=== PATIENT | male | born 1985 | race Caucasian/White ===

== ENCOUNTER 2019-10-15 03:12 | Observation (INO) | payer BC ==
[~2019-10-15] VITALS: Ht 170.2 cm; Wt 145.2 kg
[2019-10-15] MEDS ORDERED: ASPIRIN CHEWABLE 81 MG TABLET. PO ONE (04:00)
[2019-10-15 04:02] LABS: BASO # 0.1 x10^3/uL (0.0-0.2); BASO % 2 % (0-3); EOS # 0.1 x10^3/uL (0.0-0.7); EOS % 1 % (0-3); HEMATOCRIT 46.7 % (39.0-53.0); HEMOGLOBIN 15.9 g/dL (13.0-17.5); LYMPH # 3.1 x10^3/uL (1.0-4.8); LYMPH % 31 % (24-48); MEAN CORPUSCULAR HEMOGLOBIN 30 pg (25-35); MEAN CORPUSCULAR HGB CONC 34 g/dL (31-37); MEAN CORPUSCULAR VOLUME 87 fL (79-100); MONO # 0.6 x10^3/uL (0.0-1.1); MONO % 6 % (0-9); NEUT % 60 % (31-73); PLATELET COUNT 262 x10^3/uL (140-400); RED BLOOD COUNT 5.38 x10^6/uL (4.30-5.70); RED CELL DISTRIBUTION WIDTH 13.7 % (11.5-14.5)
--- NOTE | 2019-10-15 04:07 | RAD ---
EXAM: AP View of the chest DATE: 10/15/2019 3:32 AM INDICATION: Chest pain COMPARISON: No Prior FINDINGS: The heart is not enlarged. Mediastinal and hilar contours are normal. No focal parenchymal airspace opacity. No pleural effusion or pneumothorax. Mild eventration right hemidiaphragm. IMPRESSION: No radiographic evidence for acute cardiopulmonary process Electronically signed by: Salbador Zamora MD (10/15/2019 4:04 AM) DANIELA
--- NOTE | 2019-10-15 04:29 | PHYS DOC ---
Past Medical History Past Medical History: Hypertension Additional Past Medical Histor: OBESITY Past Surgical History: No Surgical History Smoking Status: Current Every Day Smoker Alcohol Use: Occasionally General Adult EDM: Chief Complaint: CHEST PAIN HPI: HPI: Patient is a 34 year old male with h/o HTN and tobacoism who present with left sided chest pain radiating to his left shoulder, neck and jaw. 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 No SOA, cough, leg pain or swelling. Father has h/o SD in early thirties. No fever, chills, sweats, cough. [] Review of Systems: Review of Systems: ROS as per HPI Heart Score: Risk Factors: Risk Factors: DM, Current or recent (<one month) smoker, HTN, HLP, family his tory of CAD, obesity. Risk Scores: Score 0 - 3: 2.5% MACE over next 6 weeks - Discharge Home Score 4 - 6: 20.3% MACE over next 6 weeks - Admit for Clinical Observation Score 7 - 10: 72.7% MACE over next 6 weeks - Early Invasive Strategies Current Medications: Current Medications Medications (Trade) Dose Ordered Sig/Moises Start Time Stop Time Status Last Admin Dose Admin Aspirin (Aspirin Chewable) 324 mg 1X ONCE 10/15/19 04:00 10/15/19 04:01 DC 10/15/19 04:04 324 MG Lorazepam (Ativan Inj) 1 mg 1X ONCE 10/15/19 04:00 10/15/19 04:01 DC 10/15/19 04:04 1 MG Allergies: Allergies: Allergies Coded Allergies Type Severity Reaction Last Updated Verified Unable to Assess 10/15/19 No Physical Exam: PE: Constitutional: Well developed, well nourished, no acute distress, non-toxic appearance. [] HENT: Normocephalic, atraumatic, bilateral external ears normal, oropharynx moist, no oral exudates, nose normal. [] Eyes: PERRLA, EOMI, conjunctiva normal, no discharge. [] Neck: Normal range of motion, no tenderness, supple, no stridor. [] Cardiovascular:Heart rate regular rhythm, no murmur [] Lungs & Thorax: Bilateral breath sounds clear to auscultation [] Abdomen: Bowel sounds normal, soft, no tenderness, no masses, no pulsatile masses. [] Skin: Warm, dry, no erythema, no rash. [] Back: No tenderness, no CVA tenderness. [] Extremities: No tenderness, no cyanosis, no clubbing, ROM intact, no edema. [] Neurologic: Alert and oriented X 3, normal motor function, normal sensory function, no focal deficits noted. [] Psychologic: Affect normal, judgement normal, mood normal. [] Current Patient Data: Labs: Laboratory Tests Test 10/15/19 03:55 10/15/19 03:59 White Blood Count 10.0 x10^3/uL (4.0-11.0) Red Blood Count 5.38 x10^6/uL (4.30-5.70) Hemoglobin 15.9 g/dL (13.0-17.5) Hematocrit 46.7 % (39.0-53.0) Mean Corpuscular Volume 87 fL (79-100) Mean Corpuscular Hemoglobin 30 pg (25-35) Mean Corpuscular Hemoglobin Concent 34 g/dL (31-37) Red Cell Distribution Width 13.7 % (11.5-14.5) Platelet Count 262 x10^3/uL (140-400) Neutrophils (%) (Auto) 60 % (31-73) Lymphocytes (%) (Auto) 31 % (24-48) Monocytes (%) (Auto) 6 % (0-9) Eosinophils (%) (Auto) 1 % (0-3) Basophils (%) (Auto) 2 % (0-3) Neutrophils # (Auto) 6.0 x10^3/uL (1.8-7.7) Lymphocytes # (Auto) 3.1 x10^3/uL (1.0-4.8) Monocytes # (Auto) 0.6 x10^3/uL (0.0-1.1) Eosinophils # (Auto) 0.1 x10^3/uL (0.0-0.7) Basophils # (Auto) 0.1 x10^3/uL (0.0-0.2) POC Troponin I 0.00 ng/ml (<0.08) Laboratory Tests 10/15/19 03:55 Vital Signs: Vital Signs Date Time Temp Pulse Resp B/P (MAP) Pulse Ox O2 Delivery O2 Flow Rate FiO2 10/15/19 03:14 97.9 118 18 155/89 (111) 100 Room Air 97.9 EKG: EKG: EKG: no acute ST changes. ] Radiology/Procedures: Radiology/Procedures: [CXR: NAD] Course & Med Decision Making: Course & Med Decision Making Pertinent Labs and Imaging studies reviewed. (See chart for details) [Atypical CP, EKG, and tropical non-diagnostic. Symptoms improved with Ativan and ASA. Multiple cardiac risk factors including paternal SD in his early thirties. Will admit to the hospitalists service for further evaluation an tx. ] Manasa Disclaimer: Manasa Disclaimer: This electronic medical record was generated, in whole or in part, using a voice recognition dictation system. Departure Departure Impression: Primary Impression: Chest pain Disposition: HOME, SELF-CARE Condition: STABLE Referrals: CHAPIN SHAVER (PCP) HANH WARREN DO Oct 15, 2019 04:29
[2019-10-15 04:50] LABS: CALCIUM 9.7 mg/dL (8.5-10.1); GFR 86.1; POTASSIUM 3.8 mmol/L (3.5-5.1)
[2019-10-15 04:56] LABS: ALBUMIN 3.6 g/dL (3.4-5.0); ALBUMIN/GLOBULIN RATIO 1.2 (1.0-1.7); TOTAL BILIRUBIN 0.3 mg/dL (0.2-1.0); TOTAL PROTEIN 6.5 g/dL (6.4-8.2)
[2019-10-15 05:39] VITALS: BP 141/84
--- NOTE | 2019-10-15 05:55 | NUR ---
PT ARRIVED TO ROOM 208 PER CART PT AMBULATED TO BED. PT ORIENTED TO SURROUNDINGS AND CALL LIGHT POC EXPLAINED PT. ASSESSMENT COMPLETED VSS PT RATED PAIN 3/10 STATED THE PAIN IS BETTER NOW.WILL RESUME CARE AND CONTINUE TO MONITOR PT.
[2019-10-15] MEDS ORDERED: LISI10TA2 PO (06:18)
[2019-10-15 07:00] VITALS: BP 159/101
--- NOTE | 2019-10-15 07:19 | EKG ---
[facility] [address] [place] [address] Test Date: 2019-10-15 Test Time: 03:18:49 Pat Name: RONN SHAVER Department: Room: 208 1 Gender: M Precision Assembler: : [id number] Requested By: HANH WARREN Order Number: [id number] Reading MD: Cassius Moulton Measurements Intervals [place] Rate: 97 P: 13 SD: 154 QRS: -3 QRSD: 104 T: 56 QT: 342 QTc: 438 Interpretive Statements SINUS RHYTHM LEFTWARD AXIS INCOMPLETE RIGHT BUNDLE BRANCH BLOCK Electronically Signed On 10-16-2019 10:17:03 CDT by Cassius Moulton
[2019-10-15 11:00] VITALS: BP 136/86
--- NOTE | 2019-10-15 11:09 | PDOC1 ---
History and Physical Date of Admission Date of Admission DATE: 10/15/19 TIME: 11:08 Identification/Chief Complaint Chief Complaint SEEN IN ER WITH ANGINA 34 year old male with h/o HTN and tobacco abuse who present with left sided chest pain radiating to his left shoulder, neck and jaw. 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 No SOA, cough, leg pain or swelling. HIS Father has h/o [place] in early thirties. Past Medical History Past Medical History Past Medical History Past Medical History Past Medical History: Hypertension Additional Past Medical Histor: OBESITY Past Surgical History: No Surgical History Smoking Status: Current Every Day Smoker Alcohol Use: Occasionally FHX OBESITY Cardiovascular: HTN Pulmonary: No pertinent hx GI: No pertinent hx Family History Family History: Coronary Artery Disease, High Cholestrol, Hypertension Social History Smoke: <1 pack per day ALCOHOL: none Drugs: None Current Problem List Problem List Problems Medical Problems: (1) Chest pain Status: Acute Current Medications Current Medications Current Medications Aspirin (Aspirin Chewable) 324 mg 1X ONCE PO Last administered on 10/15/19at 04:04; Start 10/15/19 at 04:00; Stop 10/15/19 at 04:01; Status DC Lorazepam (Ativan Inj) 1 mg 1X ONCE IVP Last administered on 10/15/19at 04:04; Start 10/15/19 at 04:00; Stop 10/15/19 at 04:01; Status DC Active Scripts Active Reported Lisinopril 10 Mg Tablet 1 Tab PO DAILY Allergies Allergies: Coded Allergies: No Known Allergies (Verified Allergy, Unknown, 10/15/19) ROS Review of System 14 pt ros neg except as in this document General: No: Chills, Night Sweats, Fatigue, Malaise, Appetite, Other PSYCHOLOGICAL ROS: No: Anxiety, Behavioral Disorder, Concentration difficultie, Decreased libido, Depression, Disorientation, Hallucinations, Hostility, Irritablity, Memory difficulties, Mood Swings, Obsessive thoughts, Physical abuse, Sexual abuse, Sleep disturbances, Suicidal ideation, Other Eyes: No Blurry vision, No Decreased vision, No Double vision, No Dry eyes, No Excessive tearing, No Eye Pain, No Itchy Eyes, No Loss of vision, No Photophobia, No Scotomata, No Uses contacts, No Uses glasses, No Other HEENT: No: Heacaches, Visual Changes, Hearing change, Nasal congestion, Nasal discharge, Oral lesions, Sinus pain, Sore Throat, Epistaxis, Sneezing, Snoring, Tinnitus, Vertigo, Vocal changes, Other ALLERGY AND IMMUNOLOGY: No: Hives, Insect Bite Sensitivity, Itchy/Watery Eyes, Nasal Congestion, Post Nasal Drip, Seasonal Allergies, Other Hematological and Lymphatic: No: Bleeding Problems, Blood Clots, Blood Transfusions, Brusing, Night Sweats, Pallor, Swollen Lymph Nodes, Other ENDOCRINE: No: Breast Changes, Galactorrhea, Hair Pattern Changes, Hot Flashes, Malaise/lethargy, Mood Swings, Palpitations, Polydipsia/polyuria, Skin Changes, Temperature Intolerance, Unexpected Weight Changes, Other Respiratory: No: Cough, Hemoptysis, Orthopnea, Pleuritic Pain, Shortness of breath, SOB with excertion, Sputum Changes, Stridor, Tachypnea, Wheezing, Other Cardiovascular: yes Chest Pain; No Palpitations, No Orthopnea, No Paroxysmal Noc. Dyspnea, No Edema, No Lt Headedness, No Other Gastrointestinal: No Nausea, No Vomiting, No Abdominal Pain, No Diarrhea, No Constipation, No Melena, No Hematochezia, No Other Genitourinary: No Dysuria, No Frequency, No Incontinence, No Hematuria, No Retention, No Discharge, No Urgency, No Pain, No Flank Pain, No Other, No , No , No , No , No , No , No Musculoskeletal: No Gait Disturbance, No Joint Pain, No Joint Stiffness, No Joint Swelling, No Muscle Pain, No Muscular Weakness, No Pain In:, No Swelling In:, No Other Neurological: No Behavorial Changes, No Bowel/Bladder ControlChng, No Confusion, No Dizziness, No Gait Disturbance, No Headaches, No Impaired Coord/balance, No Memory Loss, No Numbness/Tingling, No Seizures, No Speech Problems, No Tremors, No Visual Changes, No Weakness, No Other Skin: No Dry Skin, No Eczema, No Hair Changes, No Lumps, No Mole Changes, No Mottling, No Nail Changes, No Pruritus, No Rash, No Skin Lesion Changes, No Other, No Acne Physical Exam Physical Exam Physical Exam: PE: Constitutional: Well developed, well nourished, no acute distress, non-toxic appearance. [] HENT: Normocephalic, atraumatic, bilateral external ears normal, oropharynx moist, no oral exudates, nose normal. [] Eyes: PERRLA, EOMI, conjunctiva normal, no discharge. [] Neck: Normal range of motion, no tenderness, supple, no stridor. [] Cardiovascular:Heart rate regular rhythm, no murmur [] Lungs & Thorax: Bilateral breath sounds clear to auscultation [] Abdomen: Bowel sounds normal, soft, no tenderness, no masses, no pulsatile masses. [] Skin: Warm, dry, no erythema, no rash. [] Back: No tenderness, no CVA tenderness. [] Extremities: No tenderness, no cyanosis, no clubbing, ROM intact, no edema. [] Neurologic: Alert and oriented X 3, normal motor function, normal sensory function, no focal deficits noted. [] Psychologic: Affect normal, judgment normal, mood normal. [] General: Alert, Oriented X3, Cooperative, No acute distress HEENT: Atraumatic, EOMI, Mucous membr. moist/pink Lungs: Clear to auscultation, Normal air movement Heart: RRR, no thrills, no murmurs Breasts: Not examined Abdomen: Normal bowel sounds, Soft, No tenderness Rectal Exam: not examined PELVIC: Examination not indicated Extremities: No cyanosis Neuro: Normal speech, Cranial nerves 3-12 NL Psych/Mental Status: Mental status NL, Mood NL Vitals Vitals Vital Signs Date Time Temp Pulse Resp B/P (MAP) Pulse Ox O2 Delivery O2 Flow Rate FiO2 10/15/19 08:00 Room Air 10/15/19 07:00 98.3 80 18 159/101 (120) 98 98.3 Labs Labs Laboratory Tests Test 10/15/19 03:55 10/15/19 03:59 10/15/19 04:36 10/15/19 09:05 White Blood Count 10.0 x10^3/uL (4.0-11.0) Red Blood Count 5.38 x10^6/uL (4.30-5.70) Hemoglobin 15.9 g/dL (13.0-17.5) Hematocrit 46.7 % (39.0-53.0) Mean Corpuscular Volume 87 fL (79-100) Mean Corpuscular Hemoglobin 30 pg (25-35) Mean Corpuscular Hemoglobin Concent 34 g/dL (31-37) Red Cell Distribution Width 13.7 % (11.5-14.5) Platelet Count 262 x10^3/uL (140-400) Neutrophils (%) (Auto) 60 % (31-73) Lymphocytes (%) (Auto) 31 % (24-48) Monocytes (%) (Auto) 6 % (0-9) Eosinophils (%) (Auto) 1 % (0-3) Basophils (%) (Auto) 2 % (0-3) Neutrophils # (Auto) 6.0 x10^3/uL (1.8-7.7) Lymphocytes # (Auto) 3.1 x10^3/uL (1.0-4.8) Monocytes # (Auto) 0.6 x10^3/uL (0.0-1.1) Eosinophils # (Auto) 0.1 x10^3/uL (0.0-0.7) Basophils # (Auto) 0.1 x10^3/uL (0.0-0.2) Bedside Troponin I 0.00 ng/ml (<0.08) Sodium Level 142 mmol/L (136-145) Potassium Level 3.8 mmol/L (3.5-5.1) Chloride Level 105 mmol/L (98-107) Carbon Dioxide Level 24 mmol/L (21-32) Anion Gap 13 (6-14) Blood Urea Nitrogen 15 mg/dL (8-26) Creatinine 1.0 mg/dL (0.7-1.3) Estimated GFR (Cockcroft-Gault) 86.1 BUN/Creatinine Ratio 15 (6-20) Glucose Level 100 mg/dL (70-99) Calcium Level 9.7 mg/dL (8.5-10.1) Total Bilirubin 0.3 mg/dL (0.2-1.0) Aspartate Amino Transf (AST/SGOT) 11 U/L (15-37) Alanine Aminotransferase (ALT/SGPT) 25 U/L (16-63) Alkaline Phosphatase 92 U/L (46-116) Total Protein 6.5 g/dL (6.4-8.2) Albumin 3.6 g/dL (3.4-5.0) Albumin/Globulin Ratio 1.2 (1.0-1.7) Troponin I Quantitative < 0.017 ng/mL (0.000-0.055) Laboratory Tests Test 10/15/19 03:55 10/15/19 03:59 10/15/19 04:36 10/15/19 09:05 White Blood Count 10.0 x10^3/uL (4.0-11.0) Red Blood Count 5.38 x10^6/uL (4.30-5.70) Hemoglobin 15.9 g/dL (13.0-17.5) Hematocrit 46.7 % (39.0-53.0) Mean Corpuscular Volume 87 fL (79-100) Mean Corpuscular Hemoglobin 30 pg (25-35) Mean Corpuscular Hemoglobin Concent 34 g/dL (31-37) Red Cell Distribution Width 13.7 % (11.5-14.5) Platelet Count 262 x10^3/uL (140-400) Neutrophils (%) (Auto) 60 % (31-73) Lymphocytes (%) (Auto) 31 % (24-48) Monocytes (%) (Auto) 6 % (0-9) Eosinophils (%) (Auto) 1 % (0-3) Basophils (%) (Auto) 2 % (0-3) Neutrophils # (Auto) 6.0 x10^3/uL (1.8-7.7) Lymphocytes # (Auto) 3.1 x10^3/uL (1.0-4.8) Monocytes # (Auto) 0.6 x10^3/uL (0.0-1.1) Eosinophils # (Auto) 0.1 x10^3/uL (0.0-0.7) Basophils # (Auto) 0.1 x10^3/uL (0.0-0.2) Bedside Troponin I 0.00 ng/ml (<0.08) Sodium Level 142 mmol/L (136-145) Potassium Level 3.8 mmol/L (3.5-5.1) Chloride Level 105 mmol/L (98-107) Carbon Dioxide Level 24 mmol/L (21-32) Anion Gap 13 (6-14) Blood Urea Nitrogen 15 mg/dL (8-26) Creatinine 1.0 mg/dL (0.7-1.3) Estimated GFR (Cockcroft-Gault) 86.1 BUN/Creatinine Ratio 15 (6-20) Glucose Level 100 mg/dL (70-99) Calcium Level 9.7 mg/dL (8.5-10.1) Total Bilirubin 0.3 mg/dL (0.2-1.0) Aspartate Amino Transf (AST/SGOT) 11 U/L (15-37) Alanine Aminotransferase (ALT/SGPT) 25 U/L (16-63) Alkaline Phosphatase 92 U/L (46-116) Total Protein 6.5 g/dL (6.4-8.2) Albumin 3.6 g/dL (3.4-5.0) Albumin/Globulin Ratio 1.2 (1.0-1.7) Troponin I Quantitative < 0.017 ng/mL (0.000-0.055) Images Images EXAM: AP View of the chest DATE: 10/15/2019 3:32 AM INDICATION: Chest pain COMPARISON: No Prior FINDINGS: The heart is not enlarged. Mediastinal and hilar contours are normal. No focal parenchymal airspace opacity. No pleural effusion or pneumothorax. Mild eventration right hemidiaphragm. IMPRESSION: No radiographic evidence for acute cardiopulmonary process Electronically signed by: Salbador Zamora MD (10/15/2019 4:04 AM) [facility] DICTATED and SIGNED BY: SALBADOR ZAMORA MD DATE: 10/15/19 0404 VTE Prophylaxis Ordered VTE Prophylaxis Devices: No VTE Pharmacological Prophylaxi: Yes Assessment/Plan Assessment/Plan Impression: Chest pain morbid obesity tobacco abuse disorder hypertension pos FHX PREMATURE CAD plan admit cvc bed cardiology consult serial troponin i dvt prophylaxis ECHO D/W CARDIOLOGY IN [place] JULIO RIOS MD Oct 15, 2019 11:09
[2019-10-15] MEDS ORDERED: IV NORMAL SALINE 1000ML BAG 1,000 ML IV SCH (11:41)
[2019-10-15] MEDS ORDERED: ACETAMINOPHEN 325 MG TABLET. PO PRN (11:45)
[2019-10-15] MEDS ORDERED: MAG HYDROX/ALUMINUM HYD/SIMETH 30 ML ORAL.SUSP PO PRN (11:45)
[2019-10-15] MEDS ORDERED: ALBUTEROL SULFATE 2.5 MG/3 ML NEBU. NEB PRN (11:45)
[2019-10-15] MEDS ORDERED: guaiFENesin ORAL 200 MG/10 ML LIQUID. PO PRN (11:45)
[2019-10-15] MEDS ORDERED: cloNIDine HCL 0.1 MG TABLET PO PRN (11:45)
[2019-10-15] MEDS ORDERED: ONDANSETRON PF 4 MG/2 ML VIAL. IV PRN (11:45)
[2019-10-15] MEDS ORDERED: 0.9 % SODIUM CHLORIDE 10 ML DISP.SYRIN. IV PRN (11:45)
[2019-10-15] MEDS ORDERED: DOCUSATE SODIUM 100 MG CAPSULE. PO PRN (11:45)
--- NOTE | 2019-10-15 11:47 | NUR ---
SS following for discharge planning. SS reviewed pt chart and discussed with pt RN. Pt is from home with spouse and is currently on room air. No discharge needs identified at this time. Pt will discharge to home when medically stable. SS will continue to follow for discharge planning.
[2019-10-15] MEDS ORDERED: LISINOPRIL 10 MG TABLET PO SCH (12:00)
--- NOTE | 2019-10-15 12:27 | PDOC2 ---
MYRA HEMPHILL PREFORMING MACHINE OPERATOR 10/15/19 1227: CARDIAC CONSULT DATE OF CONSULT Date of Consult DATE: 10/15/19 TIME: 12:24 REASON FOR CONSULT Reason for Consult: Chest pain REFERRING PHYSICIAN Referring Physician: Dr. Gomez SOURCE Source: Chart review, Patient HISTORY OF PRESENT ILLNESS HISTORY OF PRESENT ILLNESS This is a 34 yo male who presented secondary to chest pain. Patient reports he was laying in bed last night and developed stabbing pain in his left chest. Radiated up to the left jaw. Did not radiated to his arms. Began to feel slightly short of breath and possibly dizzy, although he thinks this occurred as he was getting workup up due to this left chest pain. Pain persisted for a couple of hours so he decided to come to the ED for further evaluation and treatment. Pain resolved with Ativan and ASA in ED. Pain has largely been resolved overnight. Is feeling well this am. Has a history of hypertension, but does not take his lisinopril regularly. No recent chest pain with exertion or GOEL. No previous cardiac workup. No recent fevers/illness. PAST MEDICAL HISTORY Cardiovascular: HTN GI: GERD Psych: Depression PAST SURGICAL HISTORY Past Surgical History: Other (vasectomy ) FAMILY HISTORY Family History: Chronic Bronchitis (mother ), Coronary Artery Disease (father stents in his 40's ) SOCIAL HISTORY Smoke: <1 pack per day ALCOHOL: none Drugs: None Lives: with Family CURRENT MEDICATIONS CURRENT MEDICATIONS Current Medications Medications (Trade) Dose Ordered Sig/Moises Route PRN Reason Start Time Stop Time Status Last Admin Dose Admin Aspirin (Aspirin Chewable) 324 mg 1X ONCE PO 10/15/19 04:00 10/15/19 04:01 DC 10/15/19 04:04 Lorazepam (Ativan Inj) 1 mg 1X ONCE IVP 10/15/19 04:00 10/15/19 04:01 DC 10/15/19 04:04 ALLERGIES ALLERGIES: Coded Allergies: No Known Allergies (Verified Allergy, Unknown, 10/15/19) ROS Review of System 14 point ROS conducted with pertinent positives noted above in HPI PHYSICAL EXAM General: Alert, Oriented X3, Cooperative, No acute distress HEENT: Atraumatic, Mucous membr. moist/pink Lungs: Clear to auscultation, Normal air movement Heart: Regular rate, No murmurs Abdomen: No tenderness Extremities: No edema, Normal pulses Skin: No breakdown, No significant lesion Neuro: Normal speech, Sensation intact Psych/Mental Status: Mental status NL, Mood NL MUSCULOSKELETAL: No joint tenderness VITALS/I&O VITALS/I&O: Vital Signs Date Time Temp Pulse Resp B/P (MAP) Pulse Ox O2 Delivery O2 Flow Rate FiO2 10/15/19 11:00 97.9 98 16 136/86 (103) 97 Room Air 97.9 I & O 10/14/19 10/14/19 10/15/19 15:00 23:00 07:00 Intake Total 0 ml Balance 0 ml LABS Lab: Laboratory Tests Test 10/15/19 03:55 10/15/19 03:59 10/15/19 04:36 10/15/19 09:05 White Blood Count 10.0 x10^3/uL (4.0-11.0) Red Blood Count 5.38 x10^6/uL (4.30-5.70) Hemoglobin 15.9 g/dL (13.0-17.5) Hematocrit 46.7 % (39.0-53.0) Mean Corpuscular Volume 87 fL (79-100) Mean Corpuscular Hemoglobin 30 pg (25-35) Mean Corpuscular Hemoglobin Concent 34 g/dL (31-37) Red Cell Distribution Width 13.7 % (11.5-14.5) Platelet Count 262 x10^3/uL (140-400) Neutrophils (%) (Auto) 60 % (31-73) Lymphocytes (%) (Auto) 31 % (24-48) Monocytes (%) (Auto) 6 % (0-9) Eosinophils (%) (Auto) 1 % (0-3) Basophils (%) (Auto) 2 % (0-3) Neutrophils # (Auto) 6.0 x10^3/uL (1.8-7.7) Lymphocytes # (Auto) 3.1 x10^3/uL (1.0-4.8) Monocytes # (Auto) 0.6 x10^3/uL (0.0-1.1) Eosinophils # (Auto) 0.1 x10^3/uL (0.0-0.7) Basophils # (Auto) 0.1 x10^3/uL (0.0-0.2) POC Troponin I 0.00 ng/ml (<0.08) Sodium Level 142 mmol/L (136-145) Potassium Level 3.8 mmol/L (3.5-5.1) Chloride Level 105 mmol/L (98-107) Carbon Dioxide Level 24 mmol/L (21-32) Anion Gap 13 (6-14) Blood Urea Nitrogen 15 mg/dL (8-26) Creatinine 1.0 mg/dL (0.7-1.3) Estimated GFR (Cockcroft-Gault) 86.1 BUN/Creatinine Ratio 15 (6-20) Glucose Level 100 mg/dL (70-99) H Calcium Level 9.7 mg/dL (8.5-10.1) Total Bilirubin 0.3 mg/dL (0.2-1.0) Aspartate Amino Transferase (AST) 11 U/L (15-37) L Alanine Aminotransferase (ALT) 25 U/L (16-63) Alkaline Phosphatase 92 U/L (46-116) Total Protein 6.5 g/dL (6.4-8.2) Albumin 3.6 g/dL (3.4-5.0) Albumin/Globulin Ratio 1.2 (1.0-1.7) Troponin I Quantitative < 0.017 ng/mL (0.000-0.055) Laboratory Tests 10/15/19 03:55 Laboratory Tests 10/15/19 04:36 ASSESSMENT/PLAN ASSESSMENT/PLAN 1. Chest pain, atypical. Initial trop negative. EKG without acute changes 2. Hypertension; noncompliant with medical therapy. 3. GERD 4. Family h/o premature CAD 5. Obestiy 6. Tobaccoism Recommendations Trend trop Lipids TSH Echo to assess LV systolic function Resume lisinoprol; encouraged compliance with medical therapy Discussed/encouraged lifestyle modification including weight loss and smoking cessation If echo WNL, may discharge from a CV standpoint Will arrange outpatient treadmill stress test and followup. MAXIMILIAN FELDER MD 10/15/19 1521: CARDIAC CONSULT ASSESSMENT/PLAN ASSESSMENT/PLAN Patient seen and examined Chest pain. Atypical. No acute EKG changes. Will trend troponin. Will check an echo. If no elevation in troponin and no significant LV dysfunction echo the patient could be discharged from a cardiac viewpoint. We will arrange outpatient stress testing and follow-up. Hypertension. Resuming baseline medications. Discussed medical compliance with the patient and its importance. Tobacco abuse. Discussed cessation. Obesity and family history of early coronary disease. Discussed risk factor mo dification. Thank you for allowing us to participate in the care of your patient. MYRA HEMPHILL APRN Oct 15, 2019 12:27 MAXIMILIAN FELDER MD Oct 15, 2019 15:21
[2019-10-15] MEDS ORDERED: PANTOPRAZOLE 40 MG TABLET.DR. PO SCH (12:30)
[2019-10-15 13:11] LABS: CHOLESTEROL/HDL RATIO 5.5
--- NOTE | 2019-10-15 13:42 | CARD ---
MR#: [id number] Date of Study: 10/15/2019 Ordering Physician: MYRA HEMPHILL, Referring Physician: MYRA HEMPHILL, Tech: Judith Dugan SONIA APPROVED REPORT EXAM: Two-dimensional and M-mode echocardiogram with Doppler and color Doppler. Other Information Quality : Fair Rhythm : NSR INDICATION Chest Pain Morbid Obesity 2D DIMENSIONS RVDd2.5 (2.9-3.5cm)Left Atrium(2D)3.4 (1.6-4.0cm) IVSd1.0 (0.7-1.1cm)Aortic Root(2D)3.0 (2.0-3.7cm) LVDd5.6 (3.9-5.9cm)LVOT Diameter2.2 (1.8-2.4cm) PWd1.0 (0.7-1.1cm)LVDs3.7 (2.5-4.0cm) FS (%) 34.3 %SV97.8 ml LVEF(%)60.0 (>50%) Aortic Valve AoV Peak Issac.100.9cm/sAoV VTI18.2cm AO Peak GR.4.1mmHgLVOT Peak Issac.103.7cm/s AO Mean GR.2mmHgAVA (VMAX)3.79cm2 ASH (VTI)4.30cm2 Mitral Valve MV E Arxdxqoz88.2cm/sMV DECEL [id number] MV A Lsuvvlni69.9cm/sE/A Ratio1.8 Pulmonary Vein S1 Bgokqrqo62.4cm/sD2 Mjnpzlaw19.8cm/s LEFT VENTRICLE The left ventricle is normal size. There is normal left ventricular wall thickness. The left ventricu lar systolic function is normal and the ejection fraction is within normal range. The Ejection Fracti on is 55-60%. The left ventricular diastolic function and filling is normal for age. RIGHT VENTRICLE The right ventricle is normal size. The right ventricular systolic function is normal. ATRIA The left atrium size is normal. The right atrium size is normal. The interatrial septum is intact wit h no evidence for an atrial septal defect or patent foramen ovale as noted on 2-D or Doppler imaging. AORTIC VALVE The aortic valve is normal in structure and function. Doppler and Color Flow revealed no significant aortic regurgitation. There is no significant aortic valvular stenosis. MITRAL VALVE The mitral valve is normal in structure and function. There is no evidence of mitral valve prolapse. There is no mitral valve stenosis. Doppler and Color Flow revealed no mitral valve regurgitation note d. TRICUSPID VALVE The tricuspid valve is normal in structure and function. Doppler and Color Flow revealed no tricuspid valve regurgitation noted. There is no tricuspid valve stenosis. PULMONIC VALVE The pulmonic valve is not well visualized. Doppler and Color Flow revealed no pulmonic valvular regur gitation. There is no pulmonic valvular stenosis. GREAT VESSELS The aortic root is normal in size. The ascending aorta is normal in size. The IVC is normal in size a nd collapses >50% with inspiration. PERICARDIAL EFFUSION There is no evidence of significant pericardial effusion. Critical Notification Critical Value: No <Conclusion> The left ventricle is normal size. The left ventricular systolic function is normal and the ejection fraction is within normal range. The Ejection Fraction is 55-60%. Doppler and Color Flow revealed no significant aortic regurgitation. There is no significant aortic valvular stenosis. Doppler and Color Flow revealed no mitral valve regurgitation noted. Doppler and Color Flow revealed no tricuspid valve regurgitation noted. Signed by : Cassius Moulton MD Electronically Approved : 10/15/2019 13:41:43
[2019-10-15] MEDS ORDERED: HEPARIN for SUB-Q USE 5,000 UNIT/ML VIAL. SQ SCH (14:00)
--- NOTE | 2019-10-15 14:28 | PDOC3 ---
Discharge Summary Date of Admission: Oct 15, 2019 Date of Discharge: Oct 15, 2019 Follow-Up: 3-5 days Admitting Diagnosis comment: DISCHARGE DX Assessment/Plan Impression: Chest pain morbid obesity tobacco abuse disorder hypertension pos FHX PREMATURE CAD plan admit cvc bed cardiology consult serial troponin i dvt prophylaxis ECHO D/W CARDIOLOGY IN [place] [facility] OUT-PT STRESS TESTING SOON D/C PLANNING 32 MIN FINAL DIAGNOSIS Problems Medical Problems: (1) Chest pain Status: Acute Brief Hospital Course Mr. Simmons is a 34 old [sex] who presented with [ ] CONDITION AT DISCHARGE: Improved Discharge Medications Current Medications Aspirin (Aspirin Chewable) 324 mg 1X ONCE PO Last administered on 10/15/19at 04:04; Start 10/15/19 at 04:00; Stop 10/15/19 at 04:01; Status DC Lorazepam (Ativan Inj) 1 mg 1X ONCE IVP Last administered on 10/15/19at 04:04; Start 10/15/19 at 04:00; Stop 10/15/19 at 04:01; Status DC Sodium Chloride (Normal Saline Flush) 3 ml QSHIFT PRN IV AFTER MEDS AND BLOOD DRAWS; Start 10/15/19 at 11:45 Sodium Chloride 1,000 ml @ 100 mls/hr Q10H IV ; Start 10/15/19 at 11:41; Stop 10/15/19 at 12:56; Status DC Ondansetron HCl (Zofran) 4 mg PRN Q4HRS PRN IV NAUSEA/VOMITING; Start 10/15/19 at 11:45 Acetaminophen (Tylenol) 650 mg PRN Q4HRS PRN PO TEMP OVER 100.4F OR MILD PAIN; Start 10/15/19 at 11:45 Al Hydroxide/Mg Hydroxide (Mylanta Plus Xs) 30 ml PRN DAILY PRN PO HEARTBURN / GAS; Start 10/15/19 at 11:45 Clonidine HCl (Catapres) 0.1 mg PRN Q6HRS PRN PO SBP>160 OR DBP>90; Start 10/15/19 at 11:45 Docusate Sodium (Colace) 100 mg PRN BID PRN PO CONSTIPATION; Start 10/15/19 at 11:45 Albuterol Sulfate (Ventolin Neb Soln) 2.5 mg PRN Q4HRS PRN NEB SHORTNESS OF BREATH; Start 10/15/19 at 11:45 Guaifenesin (Robitussin) 200 mg PRN Q4HRS PRN PO COUGH; Start 10/15/19 at 11:45 Lisinopril (Prinivil) 10 mg DAILY PO Last administered on 10/15/19at 12:24; Start 10/15/19 at 12:00 Heparin Sodium (Porcine) (Heparin Sodium) 5,000 unit Q8HRS SQ ; Start 10/15/19 at 14:00 Pantoprazole Sodium (Protonix) 40 mg DAILYAC PO Last administered on 10/15/19at 12:23; Start 10/15/19 at 12:30 Active Scripts Active Reported Lisinopril 10 Mg Tablet 1 Tab PO DAILY Vital Signs Vital Signs Date Time Temp Pulse Resp B/P (MAP) Pulse Ox O2 Delivery O2 Flow Rate FiO2 10/15/19 12:24 98 136/86 10/15/19 11:00 97.9 16 97 Room Air 97.9 Labs Laboratory Tests Test 10/15/19 03:55 10/15/19 03:59 10/15/19 04:36 10/15/19 09:05 White Blood Count 10.0 x10^3/uL (4.0-11.0) Red Blood Count 5.38 x10^6/uL (4.30-5.70) Hemoglobin 15.9 g/dL (13.0-17.5) Hematocrit 46.7 % (39.0-53.0) Mean Corpuscular Volume 87 fL (79-100) Mean Corpuscular Hemoglobin 30 pg (25-35) Mean Corpuscular Hemoglobin Concent 34 g/dL (31-37) Red Cell Distribution Width 13.7 % (11.5-14.5) Platelet Count 262 x10^3/uL (140-400) Neutrophils (%) (Auto) 60 % (31-73) Lymphocytes (%) (Auto) 31 % (24-48) Monocytes (%) (Auto) 6 % (0-9) Eosinophils (%) (Auto) 1 % (0-3) Basophils (%) (Auto) 2 % (0-3) Neutrophils # (Auto) 6.0 x10^3/uL (1.8-7.7) Lymphocytes # (Auto) 3.1 x10^3/uL (1.0-4.8) Monocytes # (Auto) 0.6 x10^3/uL (0.0-1.1) Eosinophils # (Auto) 0.1 x10^3/uL (0.0-0.7) Basophils # (Auto) 0.1 x10^3/uL (0.0-0.2) Bedside Troponin I 0.00 ng/ml (<0.08) Sodium Level 142 mmol/L (136-145) Potassium Level 3.8 mmol/L (3.5-5.1) Chloride Level 105 mmol/L (98-107) Carbon Dioxide Level 24 mmol/L (21-32) Anion Gap 13 (6-14) Blood Urea Nitrogen 15 mg/dL (8-26) Creatinine 1.0 mg/dL (0.7-1.3) Estimated GFR (Cockcroft-Gault) 86.1 BUN/Creatinine Ratio 15 (6-20) Glucose Level 100 mg/dL (70-99) Calcium Level 9.7 mg/dL (8.5-10.1) Total Bilirubin 0.3 mg/dL (0.2-1.0) Aspartate Amino Transf (AST/SGOT) 11 U/L (15-37) Alanine Aminotransferase (ALT/SGPT) 25 U/L (16-63) Alkaline Phosphatase 92 U/L (46-116) Total Protein 6.5 g/dL (6.4-8.2) Albumin 3.6 g/dL (3.4-5.0) Albumin/Globulin Ratio 1.2 (1.0-1.7) Triglycerides Level 173 mg/dL (0-150) Cholesterol Level 165 mg/dL (0-200) LDL Cholesterol, Calculated 100 mg/dL (0-100) VLDL Cholesterol, Calculated 35 mg/dL (0-40) Non-HDL Cholesterol Calculated 135 mg/dL (0-129) HDL Cholesterol 30 mg/dL (40-60) Cholesterol/HDL Ratio 5.5 Thyroid Stimulating Hormone (TSH) 3.059 uIU/mL (0.358-3.74) Troponin I Quantitative < 0.017 ng/mL (0.000-0.055) Test 10/15/19 13:50 Troponin I Quantitative < 0.017 ng/mL (0.000-0.055) Laboratory Tests Test 10/15/19 03:55 10/15/19 03:59 10/15/19 04:36 10/15/19 09:05 White Blood Count 10.0 x10^3/uL (4.0-11.0) Red Blood Count 5.38 x10^6/uL (4.30-5.70) Hemoglobin 15.9 g/dL (13.0-17.5) Hematocrit 46.7 % (39.0-53.0) Mean Corpuscular Volume 87 fL (79-100) Mean Corpuscular Hemoglobin 30 pg (25-35) Mean Corpuscular Hemoglobin Concent 34 g/dL (31-37) Red Cell Distribution Width 13.7 % (11.5-14.5) Platelet Count 262 x10^3/uL (140-400) Neutrophils (%) (Auto) 60 % (31-73) Lymphocytes (%) (Auto) 31 % (24-48) Monocytes (%) (Auto) 6 % (0-9) Eosinophils (%) (Auto) 1 % (0-3) Basophils (%) (Auto) 2 % (0-3) Neutrophils # (Auto) 6.0 x10^3/uL (1.8-7.7) Lymphocytes # (Auto) 3.1 x10^3/uL (1.0-4.8) Monocytes # (Auto) 0.6 x10^3/uL (0.0-1.1) Eosinophils # (Auto) 0.1 x10^3/uL (0.0-0.7) Basophils # (Auto) 0.1 x10^3/uL (0.0-0.2) Bedside Troponin I 0.00 ng/ml (<0.08) Sodium Level 142 mmol/L (136-145) Potassium Level 3.8 mmol/L (3.5-5.1) Chloride Level 105 mmol/L (98-107) Carbon Dioxide Level 24 mmol/L (21-32) Anion Gap 13 (6-14) Blood Urea Nitrogen 15 mg/dL (8-26) Creatinine 1.0 mg/dL (0.7-1.3) Estimated GFR (Cockcroft-Gault) 86.1 BUN/Creatinine Ratio 15 (6-20) Glucose Level 100 mg/dL (70-99) Calcium Level 9.7 mg/dL (8.5-10.1) Total Bilirubin 0.3 mg/dL (0.2-1.0) Aspartate Amino Transf (AST/SGOT) 11 U/L (15-37) Alanine Aminotransferase (ALT/SGPT) 25 U/L (16-63) Alkaline Phosphatase 92 U/L (46-116) Total Protein 6.5 g/dL (6.4-8.2) Albumin 3.6 g/dL (3.4-5.0) Albumin/Globulin Ratio 1.2 (1.0-1.7) Triglycerides Level 173 mg/dL (0-150) Cholesterol Level 165 mg/dL (0-200) LDL Cholesterol, Calculated 100 mg/dL (0-100) VLDL Cholesterol, Calculated 35 mg/dL (0-40) Non-HDL Cholesterol Calculated 135 mg/dL (0-129) HDL Cholesterol 30 mg/dL (40-60) Cholesterol/HDL Ratio 5.5 Thyroid Stimulating Hormone (TSH) 3.059 uIU/mL (0.358-3.74) Troponin I Quantitative < 0.017 ng/mL (0.000-0.055) Test 10/15/19 13:50 Troponin I Quantitative < 0.017 ng/mL (0.000-0.055) Allergies Allergies Coded Allergies Type Severity Reaction Last Updated Verified No Known Allergies Allergy Unknown 10/15/19 Yes Disposition/Orders: D/C to Home JULIO RIOS MD Oct 15, 2019 14:28
[2019-10-15] MEDS ORDERED: DOCU-153 PO (14:29)
[2019-10-15] MEDS ORDERED: PANT40TA77 PO (14:29)
[2019-10-15] MEDS ORDERED: ACET325T9 PO (14:29)
--- NOTE | 2019-10-15 14:31 | DISCH ---
DISCHARGE INSTRUCTIONS Condition on Discharge Condition on Discharge: Stable Activity After Discharge Activity Instructions for Disc: Activity as tolerated Lifting Instructions after Dis: No heavy lifting, No pulling or pushing Driving Instructions after Dis: Do not drive today Weight Bearing Status after Di: Full weight bearing Diet after Discharge Diet after Discharge: Cardiac Checks after Discharge Checks after discharge: Check blood press - daily Contacting the [facility] after DC Call your doctor for: If your condition worsens Follow-Up Follow up with: CARDIOLOGY SOON FOR STRESS TEST Follow Up With: PCP NEXT WEEK JULIO RIOS MD Oct 15, 2019 14:30
[2019-10-15 14:40] VITALS: BP 149/80
--- NOTE | 2019-10-15 16:29 | NUR ---
Discharge Note: RONN SHAVER 2 W[facility]ER[facility] Discharge instructions and discharge home medications reviewed with Patient and a copy given. All questions have been answered and understanding verbalized. The following instructions and handouts were given: Cardiac stress test Discontinued IV line Patient discharged to home with self care via ambulation
== END 2019-10-15 16:31 | disposition home or self-care (01) ==
LOC: ER 03:12 → 2 NORTH 05:05
PROVIDERS: ADMIT Internal Medicine; ATTEND Internal Medicine
DX: R07.89 Other chest pain (principal); I10 Essential (primary) hypertension; E66.01 Morbid (severe) obesity due to excess calories; K21.9 Gastro-esophageal reflux disease without esophagitis; F17.200 Nicotine dependence, unspecified, uncomplicated; Z79.82 Long term (current) use of aspirin
CPT/HCPCS: 36415; 71045; 80053; 80061; 84443; 84484; 85025; 93005; 93306; 96374; 99284; G0378; J2060; G0379